=== PATIENT | male | born 1955 | race Caucasian/White ===

== ENCOUNTER 2018-07-27 20:35 | Observation (INO) ==
[2018-07-27] MEDS ORDERED: Ipratropium/Albuterol Neb 3 ML IH ONE (20:47)
--- NOTE | 2018-07-27 20:51 | Emergency Department Note ---
Disposition Clinical Impression: Acute bronchitis with bronchospasm, Hypoxia Dyspnea Qualifiers: Dyspnea type: shortness of breath Qualified Code(s): R06.02 - Shortness of breath Disposition: Admitted As Inpatient Condition: Fair Referrals: NONE,PCP [Primary Care Provider] - Forms: ED Satisfaction Letter Time of Disposition: 23:17 SOB HPI - General Chief Complaint: ED Shortness of Breath/Dyspnea Stated Complaint: DAT Time Seen by Provider: 07/27/18 20:47 Source: patient, family Limitations: no limitations Nursing Notes Reviewed: Yes Vital Signs Reviewed: Yes - History of Present Illness Pt Subjective Complaint: shortness of breath Onset (ago): day(s) (3 days) Context: recent illness (3 days ago started out with sinus congestion and sneezing and coughing) Severity: severe Consistency/Duration: constant, gradually worsening Improves with: nothing Worsens with: lying flat, exertion Known history of: recurrent pneumonia Associated symptoms: Reports: cough, wheezing, sputum production (Yellow sputum) , orthopnea, diaphoresis. Denies: chest pain, fever, lower extremity pain Treatment prior to arrival: none Cough present: Yes Cough Description: Productive Cough Frequency: Intermittent Sputum Amount: Moderate Sputum Color: Yellow - Related Data Home Medications Medication Instructions Recorded Confirmed Cetirizine HCl [Zyrtec] 10 mg PO DAILY 12/22/16 09/16/17 Allergies Allergy/AdvReac Type Severity Reaction Status Date / Time aspirin Allergy Anaphylaxis Verified 07/27/18 20:50 ibuprofen [From Motrin] AdvReac Anaphylaxis Verified 07/27/18 20:52 All systems ED: reviewed and negative except as stated. Constitutional: Denies: fever, chills ENT ED: Denies: ear pain, throat pain, congestion Cardiovascular: Reports: dyspnea on exertion, orthopnea. Denies: chest pain, palpitations Respiratory: Reports: cough, dyspnea, wheezes Gastrointestinal: Denies: abdominal pain, nausea, vomiting, diarrhea Musculoskeletal: Denies: back pain Integumentary: Denies: rash Neurological: Denies: headache Past Medical History - Past Medical History Attestation: Yes The following information was validated with the patient. Source: patient, old records reviewed, obtained from family, nursing notes reviewed Medical history: Reports: hypertension, renal disease Psychiatric history: Reports: no psych history - Social History Smoking Status: Current some day smoker Smokeless Tobacco Status: No Alcohol use: Reports: none Drug use: Reports: none Physical Exam - General Limitations: no limitations General appearance: alert, other (Patient is tachypneic and diaphoretic. He is obviously short of breath but he is speaking full sentences.) - Head Head exam: atraumatic, normocephalic, normal inspection - Eye Eye exam: Present: normal appearance, PERRL, EOMI. Absent: scleral icterus, conjunctival injection, periorbital swelling - ENT ENT exam: normal exam, normal oropharynx, mucous membranes moist, normal external ear exam - Neck Neck exam: Present: normal inspection, full ROM, trachea midline. Absent: tenderness, meningismus - Chest Chest inspection: Present: normal inspection, symmetric chest wall rise. Absent : tenderness - Respiratory Respiratory exam: Present: respiratory distress (Tachypnea with a little bit of accessory muscle use), wheezes (Bilateral) - Cardiovascular Cardiovascular exam: Present: regular rate, normal rhythm, normal heart sounds - Abdominal Exam Abdominal exam: Present: soft, Non-Tender, normal bowel sounds - Extremities Exam Extremities exam: Present: normal inspection. Absent: pedal edema - Neurological Exam Neurological exam: Present: alert, oriented X3 - Psychiatric Psychiatric exam: Present: normal affect, normal mood - Skin Skin exam: Present: warm, diaphoresis. Absent: rash, cyanosis Course Course Narrative: Patient has a shortness of breath. He describes what sounds like an infectious issue in that he had some upper respiratory infection symptoms and then it went down into his lungs causing cough and shortness of breath and wheezing. The cough is productive of yellow sputum. However he does not have fevers or chills or other infectious disease symptoms. He describes orthopnea in excess of dyspnea on exertion. Here in the department and his blood pressure is elevated. His lungs are noise he on auscultation. I am very suspicious is to be a pneumonia or a bronchitis with bronchospasm in this smoker but CHF has to be considered given all that orthopnea. I ordered breathing treatments and chest x-ray as well as short of breath labs. Disposition will be based on diagnostic results and reevaluation. - Reevaluation(s) Reevaluation #1: Patient has significant improvement with breathing treatments almost a little bit tachypneic. Labs look good. Chest x-ray showed no acute pathology to indicate congestive heart failure or pneumonia. Looking back with all these results and with the patient's telling me it sounds like bronchitis with bronchospasm. He has a cough productive of yellow sputum in addition to shortness of breath and wheezing on auscultation and he is a smoker. His presentation was significant and he does have an oxygen requirement sweaty needs to be admitted to the hospital. We will start him on antibiotics and steroids and I will talk to the hospitalist shortly. Time: 21:57 - Consultations Consultation #1: Dr. Santana, hospitalist - I discussed case with the hospitalist. He is accepted patient for admission. Time: 23:17 Vital Signs Temperature 98.3 F 07/27/18 20:36 Pulse Rate 75 07/27/18 20:36 Respiratory Rate 22 07/27/18 20:36 Blood Pressure 246/130 07/27/18 20:36 O2 Sat by Pulse Oximetry 93 07/27/18 20:36 Temperature 98.3 F 07/27/18 20:36 Pulse Rate 68 07/27/18 22:58 Respiratory Rate 16 07/27/18 22:58 Blood Pressure 173/76 07/27/18 22:58 O2 Sat by Pulse Oximetry 94 07/27/18 22:58 Oxygen Delivery Oxygen Delivery Nasal Cannula Shortness of Breath/Dyspnea - Medical Records Medical records reviewed: Yes I reviewed the patient's medical records. - Lab Data Lab results reviewed: Yes I reviewed the patient's lab results. Result diagrams: 07/27/18 21:00 07/27/18 21:00 Lab Results 07/27/18 07/27/18 07/27/18 Range/Units 21:00 21:00 21:00 WBC 12.6 H (4.3-11.1) K/mcL RBC 5.51 H (4.19-5.50) M/mcL Hgb 14.8 (12.9-16.9) g/dL Hct 44.8 (37.5-50.1) % MCV 81.3 L (83.0-100.0) fL MCH 26.9 L (28.0-33.3) pg MCHC 33.0 (31.6-35.5) g/dL RDW 14.2 (11.5-14.5) % Plt Count 103 L (140-400) K/mcL MPV 13.0 H (9.4-12.4) fL Immature Gran % 0.4 (0-4) % Seg Neutrophils % 70.3 % Lymphocytes % 12.1 % Monocytes % 11.5 % Eosinophils % 5.1 % Basophils % 0.6 % Neutrophils # 8.9 (1.6-8.9) K/mcL Lymphocytes # 1.5 (0.6-4.6) K/mcL Monocytes # 1.5 H (0.0-1.3) K/mcL Eosinophils # 0.6 (0.0-0.6) K/mcL Basophils # 0.1 (0.0-0.2) K/mcL PT 11.3 (9.4-12.1) Seconds INR 1.0 APTT 54.2 H (26.0-36.0) Seconds Sample Site ABG pH (7.32-7.45) pH Units ABG pCO2 (35-45) mmHg ABG pO2 (85-104) mmHg ABG HCO3 (21-27) mEq/L ABG Total CO2 (20-26) mEq/L ABG O2 Saturation (95-98) % ABG Base Excess (-2 to 3) mEq/L William Test O2 Delivery Device Inspired O2 (1-15=lpm [id number]=%) Sodium 139 (136-145) mEq/L Potassium 3.8 (3.5-5.1) mEq/L Chloride 106 (98-107) mEq/L Carbon Dioxide 26 (23-29) mEq/L BUN 14 (8-23) mg/dL Creatinine 0.84 (0.70-1.30) mg/dL Est GFR ( Amer) > 60 (> 60) Est GFR (Non-Af Amer) > 60 (> 60) BUN/Creatinine Ratio 17 (6-26) Glucose 109 H (70-105) mg/dL Calculated Osmolality 289 (280-300) Lactic Acid (0.5-2.2) mmol/L Calcium 9.3 (8.6-10.3) mg/dL Troponin I < 0.03 (< 0.04) ng/mL B-Natriuretic Peptide (Less than 100) pg/mL 07/27/18 07/27/18 07/27/18 Range/Units 21:00 21:00 21:22 WBC (4.3-11.1) K/mcL RBC (4.19-5.50) M/mcL Hgb (12.9-16.9) g/dL Hct (37.5-50.1) % MCV (83.0-100.0) fL MCH (28.0-33.3) pg MCHC (31.6-35.5) g/dL RDW (11.5-14.5) % Plt Count (140-400) K/mcL MPV (9.4-12.4) fL Immature Gran % (0-4) % Seg Neutrophils % % Lymphocytes % % Monocytes % % Eosinophils % % Basophils % % Neutrophils # (1.6-8.9) K/mcL Lymphocytes # (0.6-4.6) K/mcL Monocytes # (0.0-1.3) K/mcL Eosinophils # (0.0-0.6) K/mcL Basophils # (0.0-0.2) K/mcL PT (9.4-12.1) Seconds INR APTT (26.0-36.0) Seconds Sample Site R Radial ABG pH 7.44 (7.32-7.45) pH Units ABG pCO2 26 L (35-45) mmHg ABG pO2 77 L (85-104) mmHg ABG HCO3 17 L (21-27) mEq/L ABG Total CO2 18 L (20-26) mEq/L ABG O2 Saturation 96 (95-98) % ABG Base Excess -5 L (-2 to 3) mEq/L William Test Positive O2 Delivery Device Cannula Inspired O2 2.0 (1-15=lpm [id number]=%) Sodium (136-145) mEq/L Potassium (3.5-5.1) mEq/L Chloride (98-107) mEq/L Carbon Dioxide (23-29) mEq/L BUN (8-23) mg/dL Creatinine (0.70-1.30) mg/dL Est GFR ( Amer) (> 60) Est GFR (Non-Af Amer) (> 60) BUN/Creatinine Ratio (6-26) Glucose (70-105) mg/dL Calculated Osmolality (280-300) Lactic Acid 0.8 (0.5-2.2) mmol/L Calcium (8.6-10.3) mg/dL Troponin I (< 0.04) ng/mL B-Natriuretic Peptide 206 H (Less than 100) pg/mL - Radiology Data Radiology results reviewed: Yes I reviewed the patient's radiology results. - EKG Data EKG attestation: Yes I reviewed and interpreted this EKG. EKG results narrative: Twelve-lead EKG performed at 2040 2 PM an powder guard by ED physician shows sinus rhythm at a rate of 75. Normal axis. Good hour progression across precordium. Borderline LVH and T-wave abnormalities in the lateral limb leads and lateral precordial leads that seem consistent with LVH strain. Intervals are within normal limits. Repeat twelve-lead EKG performed at 20 1:47 PM and interpreted by ED physician showed sinus rhythm at a rate of 73. Normal axis. Good hour progression across precordium. T-wave inversion seen in 1 and L and V5 and V6 that look consistent with strain pattern. Intervals are otherwise within normal limits.
[2018-07-27 21:21] LABS: Basophils # 0.1 K/mcL (0.0-0.2); Basophils % 0.6 %; Eosinophils # 0.6 K/mcL (0.0-0.6); Eosinophils % 5.1 %; Hematocrit 44.8 % (37.5-50.1); Hemoglobin 14.8 g/dL (12.9-16.9); Immature Granulocytes % 0.4 % (0-4); Lymphocytes # 1.5 K/mcL (0.6-4.6); Lymphocytes % 12.1 %; Mean Corpuscular Hemoglobin 26.9 pg (28.0-33.3); Mean Corpuscular Volume 81.3 fL (83.0-100.0); Monocytes # 1.5 K/mcL (0.0-1.3); Monocytes % 11.5 %; Neutrophils # 8.9 K/mcL (1.6-8.9); Platelet Count 103 K/mcL (140-400); Red Blood Count 5.51 M/mcL (4.19-5.50); Red Cell Distribution Width 14.2 % (11.5-14.5); Segmented Neutrophils % 70.3 %
[2018-07-27 21:26] LABS: Prothrombin Time 11.3 Seconds (9.4-12.1)
[2018-07-27 21:29] LABS: Activated Partial Thrombo Time 54.2 Seconds (26.0-36.0)
[2018-07-27 21:29] LABS: ABG Base Excess -5 mEq/L (-2 to 3); ABG HCO3 17 mEq/L (21-27); ABG Oxygen Saturation 96 % (95-98); ABG PCO2 26 mmHg (35-45); ABG PH 7.44 pH Units (7.32-7.45); ABG PO2 77 mmHg (85-104); ABG TCO2 18 mEq/L (20-26)
[2018-07-27 21:37] LABS: BUN/Creatinine Ratio 17 (6-26); Blood Urea Nitrogen 14 mg/dL (8-23); Calcium 9.3 mg/dL (8.6-10.3); Carbon Dioxide 26 mEq/L (23-29); Chloride 106 mEq/L (98-107); Glucose 109 mg/dL (70-105); Osmolality,Calculated 289 (280-300); Potassium 3.8 mEq/L (3.5-5.1); Sodium 139 mEq/L (136-145); eGFR For Non-African Americans > 60 (> 60)
[2018-07-27 21:43] LABS: Troponin I < 0.03 ng/mL (< 0.04)
[2018-07-27] MEDS ORDERED: methylPREDNISolone 125 MG/2 ML VIAL IVP ONE (22:29)
[2018-07-27] MEDS ORDERED: 0.9 % Sodium Chloride 1,000 ML IVC ONE (22:29)
[2018-07-27] MEDS ORDERED: Levofloxacin 750 MG/150 ML 750 MG/150 ML BAG IVPB ONE (22:29)
[2018-07-28] MEDS ORDERED: 0.9 % Sodium Chloride 1,000 ML IVC SCH (00:12)
[2018-07-28] MEDS ORDERED: Naloxone 0.4 MG/ML INJ IVP PRN (00:12)
[2018-07-28] MEDS: Ipratropium/Albuterol Neb 3 ML IH SCH ×4 (01:49→11:34)
[2018-07-28] MEDS ORDERED: MethylPREDNISolone 40 MG/ML VIAL IVP ONE ×2 (07:00→09:00)
[2018-07-28] MEDS ORDERED: methylPREDNISolone 125 MG/2 ML VIAL IVP ONE (09:00)
[2018-07-28] MEDS ORDERED: Levofloxacin 750 MG/150 ML 750 MG/150 ML BAG IVPB SCH (09:00)
[2018-07-28 11:07] VITALS: BP 178/74
--- NOTE | 2018-07-28 12:19 | Internal Med History&Physical ---
Date of Encounter: 07/28/18 Time of Encounter: 11:40 Assessment and Plan (1) Acute bronchitis with bronchospasm Current visit: Yes Status: Acute Clinically improved. He feels essentially back to his baseline and wishes to be discharged home. (2) Microcytosis Current visit: Yes Status: Acute Duration unknown. (3) Thrombocytopenia Current visit: Yes Status: Acute Duration unknown. Internal Medicine - H&P: HPI Chief complaint: Dyspnea and cough Admitted From: Emergency Dept Plans for Post Hospital Care: Home History of present illness: Mr. Hernandez is a 62 year old male who came to emergency room stating he had onset of dyspnea the evening of July 25. He reports cough productive of yellow sputum. He experienced fevers and chills. He came to emergency room and was evaluated and was felt to have acute bronchitis. He was admitted to [facility] floor for ongoing care needs. He states he feels significantly improved at present time and wishes to be discharged home. He reports he has smoked since age 12 a total of 30 years up to 2 packs per day. He reports PFTs many years ago. He does not use home oxygen and has not been diagnosed with chronic lung disease. He has not seen a physician in many years. Past Med Surg Social Fam HX - Past Medical History Medical history: hypertension, renal disease Psychiatric history: no psych history - Past Surgical History Additional surgical history: REMOVAL BONE SPUR LT FOOT - Social History Smoking Status: Current some day smoker Smokeless Tobacco Status: No Alcohol use: none Drug use: none Internal Medicine - H&P: Meds Cetirizine HCl [Zyrtec] 10 mg PO DAILY 12/22/16 [History] 3 Allergy/AdvReac Type Severity Reaction Status Date / Time aspirin Allergy Anaphylaxis Verified 07/27/18 20:50 ibuprofen [From Motrin] AdvReac Anaphylaxis Verified 07/27/18 20:52 All Systems PM: A 10-system review of systems was performed and is negative for pertinent findings except as documented above in the HPI. Review of systems: Gen.: He states his weight has increased approximately 30 pounds in the past 3 years, unintentional Cardiovascular: He has history of hypertension. He does not get chest pain on exertion. He reports negative heart catheter approximately 2001. He was told his "platelets were occasionally clumping" and was placed on Plavix after the heart catheter but has not taken it for several years since he does not follow with a physician. He denies DVT or pulmonary embolus. Reports family history of DVT. He denies GA or heart failure. 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 He denies other kidney bladder prostate disorders. Neurologic: He denies large distribution strokes or seizures. Endocrine: He was told he had a thyroid abnormality years ago and was placed on medication including beta andria. He does not know specific diagnosis. He has not taken medications for several years. He denies diabetes or hyperlipidemia. Hematology/oncology: He denies blood disorders cancers or anemia Psychiatric: He has anxiety but denies depression or other mental health issues [place] skeletal: He reports a left foot cyst. He has DJD but denies gout or other bone joint or muscle disorders. - Constitutional Vitals: Temp Pulse Resp BP Pulse Ox 97.8 F 72 18 178/74 92 07/28/18 11:04 07/28/18 11:04 07/28/18 11:35 07/28/18 11:04 07/28/18 11:35 Exam: Gen.: He is a well-developed overweight male sitting comfortably in bed who appears in no acute distress at present time HEENT: Head is atraumatic and normocephalic. Eyes: EOMI. There is no scleral icterus. Mouth: Mucosa is moist. Neck: Supple and nontender. There is no thyromegaly or adenopathy noted. Heart: Regular without murmurs gallops or ectopics Lungs: No wheezes or egophony or crackles are heard. Abdomen: Soft and nontender. No masses or guarding are noted. Extremities: There is no cyanosis edema or clubbing noted. Dorsalis pedis and posterior tibial pulses are trace to 1+ palpable bilaterally. Neurologic: Mental status: He is talkative and a good historian. Cranial nerves : Smile is symmetric. Forehead wrinkles bilaterally. Tongue protrudes midline. EOMI. Motor: There is no pronator drift. Cerebellar: Finger to nose is intact bilaterally. Skin: Warm and dry Internal Med - H&P Results - Labs CBC & Chem 7: 07/27/18 21:00 07/27/18 21:00 Labs: Cardiac Enzymes 07/28/18 07/28/18 Range/Units 03:30 09:40 Troponin I < 0.03 < 0.03 (< 0.04) ng/mL
--- NOTE | 2018-07-28 12:26 | Discharge Summary ---
Date of Encounter: 07/28/18 Time of Encounter: 11:40 - Discharge Diagnosis (1) Acute bronchitis with bronchospasm Priority: Primary Status: Acute (2) Microcytosis Priority: Secondary Status: Acute (3) Thrombocytopenia Priority: Secondary Status: Acute Hospital course: Mr. Hernandez is a 62 year old male who came to emergency room stating he had onset of dyspnea the evening of July 25. He reports cough productive of yellow sputum. He experienced fevers and chills. He came to emergency room and was evaluated and was felt to have acute bronchitis. He was admitted to [facility] for ongoing care needs. Initial orders were written by the emergency room physician. I saw him on July 28 and performed a history physical and discharge. By the time I saw him he stated his breathing was near baseline. He wished to be discharged home. He was given IV Levaquin in emergency room. He will continue Levaquin and probiotic orally for 3 additional days at discharge. Room air oximetry will be checked on 6 minute walk prior to discharge. He was instructed to follow with a PCP within 1 week. Duration of microcytosis and thrombocytopenia are unknown. His PCP can further evaluate and/or refer to hematology/oncology as needed. - Time Spent with Patient Total time spent providing and/or coordinating discharge services: - Discharge Medications Prescriptions: Lactobacillus [Culturelle] 1 each PO DAILY #3 cap.sprink levoFLOXacin [Levaquin] 750 mg PO DAILY #3 tablet Home Medications: Cetirizine HCl [Zyrtec] 10 mg PO DAILY 12/22/16 [History] Lactobacillus [Culturelle] 1 each PO DAILY #3 cap.sprink 07/28/18 [Rx] levoFLOXacin [Levaquin] 750 mg PO DAILY #3 tablet 07/28/18 [Rx] Allergies/Adverse Reactions: 3 Allergy/AdvReac Type Severity Reaction Status Date / Time aspirin Allergy Anaphylaxis Verified 07/27/18 20:50 ibuprofen [From Motrin] AdvReac Anaphylaxis Verified 07/27/18 20:52 Date of admission: 07/27/18 23:32 Primary care physician: PCP NONE - Constitutional Vitals: Temp Pulse Resp BP Pulse Ox 97.8 F 72 18 178/74 92 07/28/18 11:04 07/28/18 11:04 07/28/18 11:35 07/28/18 11:04 07/28/18 11:35 - Patient Status Disposition: Home, Self-Care Condition: Fair - Discharge Instructions Follow Up With: NONE,PCP [Primary Care Provider] - 1 week - Diet and Activity Activity: resume usual activities as tolerated Diet: low fat, low cholesterol
--- NOTE | 2018-07-30 22:37 | Electrocardiograph Report ---
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
--- NOTE | 2018-07-30 22:41 | Electrocardiograph Report ---
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
== END 2018-07-28 13:51 | disposition home or self-care (01) ==
LOC: INPPIK 20:35 → EMEROOPIK 20:35 → INPPIK 07-28 00:02
PROVIDERS: ADMIT Internal Medicine; ATTEND Internal Medicine